=== PATIENT | female | born 1970 | race Caucasian/White ===

== ENCOUNTER 2019-09-16 16:24 | Emergency (ER) | payer SELFPAY ==
[~2019-09-16] VITALS: Ht 162.6 cm; Wt 89.5 kg
[2019-09-16 18:44] LABS: CULTURE INDICATED? YES; MICROSCOPIC INDICATED
[2019-09-16] MEDS ORDERED: PHENAZOPYRIDINE 200 MG TABLET PO ONE (19:00)
[2019-09-16] MEDS ORDERED: CEFTRIAXONE 1,000 MG IM ONE (19:00)
[2019-09-16] MEDS ORDERED: CEFTRIAXONE 1,000 MG ONE (19:04)
[2019-09-16] MEDS ORDERED: PHENAZOPYRIDINE 200 MG TABLET ONE (19:04)
[2019-09-16 19:43] VITALS: BP 141/84
== END 2019-09-16 19:46 | disposition home or self-care (01) ==
LOC: ED 19:00
DX: N30.00 Acute cystitis without hematuria (principal); F17.200 Nicotine dependence, unspecified, uncomplicated; Z98.51 Tubal ligation status
CPT/HCPCS: 81001; 87077; 87086; 87186; 96372; 99283; J0696